=== PATIENT | male | born 1990 | race Caucasian/White ===

== ENCOUNTER → 2017-10-10 | Outpatient (CLI) | payer BC ==
--- NOTE | 2017-10-10 08:08 | DIAGNOSTIC IMAGING REPORT ---
CT SCAN OF THE PARANASAL SINUSES CLINICAL HISTORY: Hypertrophy of the nasal turbinates. COMPARISON STUDY: No priors. TECHNIQUE: High-resolution CT scan of the paranasal sinuses is performed. Images are reviewed in the axial, sagittal, and coronal planes. IV contrast was not administered for this examination. The examination is performed using the fusion protocol. A dose lowering technique was utilized adhering to the principles of ALARA. CT DOSE: 596.26 mGy.cm FINDINGS: Maxillary antra: Trace mucosal thickening is seen bilaterally, right greater than left. Anterior ethmoid sinuses: Trace mucosal thickening is seen on the right. Clear on the left. Posterior ethmoid sinuses: Clear. Sphenoid sinuses: Trace mucosal thickening is seen bilaterally. Frontal sinuses: Clear. Ostiomeatal complexes: Patent bilaterally. Frontoethmoidal and sphenoethmoidal recesses: Patent bilaterally. Carotid arteries: The carotid arteries are covered and without septal attachments. Ethmoid roofs: There is slightly asymmetric elevation of the left ethmoid roof as compared to the right. Nasal turbinates: The inferior nasal terminates appear hypertrophied. Nasal septum: There is mild rightward deviation of the bony nasal septum with leftward facing spur posteriorly. Optic nerves: Covered. Orbits: The bony orbits are intact. Orbital contents are normal in appearance. Calvarium: The imaged calvarium is normal in appearance Mastoid air cells: Well pneumatized. Brain parenchyma: Partially visualized brain parenchyma is within normal limits. IMPRESSION: Minimal paranasal sinus disease as above. Electronically signed by: Kb Saeed M.D. 10/10/2017 8:07 AM Dictated Date/Time: 10/10/2017 8:01 AM
== END | disposition home or self-care (01) ==
LOC: C.CTS 07:45
DX: J34.3 Hypertrophy of nasal turbinates (principal)

== ENCOUNTER 2023-01-11 19:55 | Observation (INO) ==
[2023-01-11 21:34] LABS: Alanine Aminotransferase 18 U/L (7-52); Albumin Globulin Ratio 2.3 (0.9-2); Albumin Level 4.8 gm/dl (3.4-5.0); Alkaline Phosphatase 31 U/L (34-104); Anion Gap 8 (3-11); Aspartate Aminotransferase 15 U/L (13-39); BUN Creatinine Ratio 13.4 (10-20); Bilirubin,Total 0.7 mg/dl (0.2-1.0); Blood Urea Nitrogen 15 mg/dl (6-23); Calcium 9.1 mg/dl (8.6-10.3); Carbon Dioxide 26 mmol/L (21-32); Chloride 105 mmol/L (98-107); Est GFR (African American) 100.2 ml/min; Est GFR (Non-African American) 86.5 ml/min; Globulin 2.1 gm/dl (2.5-4.0); Glucose 91 mg/dl (70-99(Fasting)); Magnesium 1.9 mg/dl (1.7-2.4); Potassium 3.9 mmol/L (3.5-5.1); Sodium 139 mmol/L (136-145); Total Protein 6.9 gm/dl (6.0-8.3)
[2023-01-11 21:40] LABS: Troponin I High Sensitivity < 2.3 pg/ml (0-20)
[2023-01-11 21:50] LABS: Partial Thromboplastin Time 27.8 Seconds (21.0-31.0); Prothrombin Time 10.8 Seconds (9.0-12.0)
[2023-01-11 21:54] LABS: Basophils # (auto) 0.03 K/uL (0-0.2); Basophils % (auto) 0.7 %; Eosinophils # (auto) 0.08 K/uL (0-0.50); Hematocrit (blood only) 38.5 % (42.0-52.0); Hemoglobin 14.5 g/dl (14.0-18.0); Immature Granulocytes # (auto) 0.01 K/uL (0.01-0.20); Immature Granulocytes % (auto) 0.2 %; Lymphocytes # (auto) 1.83 K/uL (1.2-3.4); Lymphocytes % (auto) 45.4 %; Mean Corpuscular Hemoglobin 30.8 pg (25.0-34.0); Mean Corpuscular Hgb Conc 37.7 g/dL (32.0-36.0); Mean Corpuscular Volume 81.7 fL (80.0-100.0); Mean Platelet Volume 8.8 fL (9.4-12.4); Monocytes # (auto) 0.42 K/uL (0.11-0.59); Monocytes % (auto) 10.4 %; Neutrophils # (auto) 1.66 K/uL (1.40-6.50); Neutrophils % (auto) 41.3 %; Platelet Count 213 K/uL (130-400); RDW Standard Deviation 35.3 fL (36.4-46.3); Red Blood Count 4.71 M/uL (4.70-6.10); White Blood Count 4.03 K/ul (4.8-10.8)
--- NOTE | 2023-01-11 21:54 | Emergency Department Note ---
History of Present Illness General Chief complaint: Leg Weakness, Bilateral Stated complaint: SENSATION OF NUMBNESS/TIGLING DARRYL LEGS Time Seen by Provider: 01/11/23 21:37 History of Present Illness 32-year-old male patient presents to the emergency department with his for evaluation of numbness and weird feelings in his bilateral legs that is now radiating to his abdomen. His symptoms started 2 months ago, but getting progressively worse. He denies any injury or trauma. Has had tingling sensations into his bilateral legs and feels like he's not getting good circulation into his legs. Started in his feet and now progressing up his legs into his abdomen. Feels like something is wrapped around his toes, legs, and abdomen. Also feels like he has a "wedgie" in his buttocks area. Does not have any pain, just the "weird" feeling in his legs. Still having erections, but states that sexual sensation doesn't feel the same. No loss of control of his bowel or bladder functions. He is still able to walk. Denies any weakness of the legs, mostly just the decreased sensation. He states that over the past couple days the symptoms have gotten worse and he is worried that the symptoms are now in his abdomen over the past 2 days. He has tried steroids without improvement as well as gabapentin for the past month. Has not improved with ibuprofen or Tylenol either. Symptoms have been constant and seem to be the same at all times. Nothing seems to make the symptoms worse. The patient state s that he was diagnosed with anterolisthesis of the spine around 12 years old, but has not had previous symptoms similar to his current symptoms. Upon review of the patient's past medical records, he was seen by his PCP and had an MRI of the lumbar spine on 12/01/2022 with chronic L5 pars defect and grade 1 anterolisthesis resulting in moderate bilateral neural foraminal narrowing at L5/S1. No significant central canal stenosis. His PCP started him on steroids and gabapentin without any improvement. He was then seen by pain management who did not feel the patient's symptoms were secondary to lumbar radiculopathy and did not feel he had Guillain-Pablo based on history and exam. They were concerned about a spinal cord lesion versus progressive polyneuropathy. Pain management ordered an MRI of the brain, cervical spine, and thoracic spine with and without contrast, EMG testing, and he was referred to neurology. However, he is unable to get the MRIs done until January. Home Medications Medication Instructions Recorded Confirmed Type cholecalciferol (vitamin D3) 50 50 mcg PO DAILY #30 caps 11/23/22 12/28/22 Rx mcg (2,000 unit) capsule gabapentin 100 mg capsule 100 mg PO DAILY #30 caps 12/04/22 12/28/22 Rx Allergies Allergy/AdvReac Type Severity Reaction Status Date / Time No Known Allergies Allergy Unverified 12/28/22 10:53 Past Med/Surg History Medical History Anterolisthesis of lumbar spine L5-S1 Surgical History H/O oral surgery No pertinent past surgical history S/P tympanoplasty Family History Grandfather (Paternal) Myocardial infarction Father Myocardial infarction Other No pertinent family history Denies family history of Ovarian cancer Prostate cancer Breast cancer Colorectal cancer Social History Smoking Status: Never smoker Hx Alcohol Use: Yes Hx Substance Use: No Preferred Language: Urdu Visual Impairment: No Limitations Hearing Ability: Normal marital status: Current Living Situation: Family current occupational status: employed Feels Safe at Home: Yes Childhood Exposure to Second-Hand Smoke: No Dental Care, Regularly: Yes Physical Activity Frequency: 3-4 Times per Week Seatbelt Use: always Sunscreen Use: Yes Review of Systems See HPI for pertinent positives & negatives. Physical Exam Vital Signs Vital Signs - 24 hr 01/11/23 19:59 01/11/23 20:28 01/11/23 20:30 Temperature 36.6 C Temperature Source Temporal Artery Scan Pulse Rate 75 73 67 Pulse Rate from SpO2 Sensor 71 67 Respiratory Rate 17 16 12 Respiratory Depth Normal Blood Pressure 148/88 H 141/81 H 113/77 Blood Pressure Mean 108 101 89 Pulse Oximetry 97 96 96 Oxygen Delivery Method Room Air Room Air Room Air Sepsis Recent Fever Within 48 Hours No Sepsis New/Unexplained Change in Mental Status No Sepsis Action Taken by Nursing No Action Required 01/11/23 21:01 01/11/23 21:30 01/11/23 22:01 Temperature Temperature Source Pulse Rate 65 61 72 Pulse Rate from SpO2 Sensor 66 62 67 Respiratory Rate 19 16 14 Respiratory Depth Blood Pressure 151/74 H 138/84 133/97 Blood Pressure Mean 99 102 109 Pulse Oximetry 96 97 97 Oxygen Delivery Method Room Air Room Air Room Air Sepsis Recent Fever Within 48 Hours Sepsis New/Unexplained Change in Mental Status Sepsis Action Taken by Nursing 01/11/23 22:30 01/11/23 23:00 01/11/23 23:31 Temperature Temperature Source Pulse Rate 65 63 103 H Pulse Rate from SpO2 Sensor 62 63 80 Respiratory Rate 16 18 16 Respiratory Depth Blood Pressure 130/85 134/86 142/59 H Blood Pressure Mean 100 102 86 Pulse Oximetry 97 96 98 Oxygen Delivery Method Room Air Room Air Room Air Sepsis Recent Fever Within 48 Hours Sepsis New/Unexplained Change in Mental Status Sepsis Action Taken by Nursing 01/12/23 00:00 01/12/23 00:30 01/12/23 01:00 Temperature Temperature Source Pulse Rate 63 78 61 Pulse Rate from SpO2 Sensor 64 76 60 Respiratory Rate 13 22 12 Respiratory Depth Blood Pressure 124/83 137/73 125/70 Blood Pressure Mean 96 94 88 Pulse Oximetry 97 98 97 Oxygen Delivery Method Room Air Room Air Room Air Sepsis Recent Fever Within 48 Hours Sepsis New/Unexplained Change in Mental Status Sepsis Action Taken by Nursing VITALS: Vitals are noted on the nurse's note and reviewed by myself. GENERAL: No acute distress, non-diaphoretic. SKIN: No obvious rashes or lesions noted. Capillary reflex less than 2 seconds. HEAD: No scalp tenderness. No step-offs felt. EYES: Pupils equal round and reactive to light and accommodation. Conjunctivae without injection, sclerae without icterus. Extraocular movements intact without pain. No nystagmus. FACE: No facial bone tenderness. Full range of motion of the jaw without tenderness. No facial droop. MOUTH: Mucous membranes moist. Uvula midline. Airway patent. Tongue does not deviate. NECK: Supple without nuchal rigidity. Cervical spine is nontender. Full range of motion of the neck without tenderness and normal strength. Normal strength and range of motion of the neck. HEART: Regular rate and rhythm without murmurs gallops or rubs. LUNGS: Clear to auscultation bilaterally without wheezes, rales or rhonchi. No retractions or accessory muscle use. No chest wall tenderness. ABDOMEN: Positive bowel sounds x 4. Normal tympanic percussion. Soft, nontender, without masses or organomegaly. No guarding or rebound tenderness. No focal right lower quadrant or left lower quadrant tenderness. No CVA tenderness. Negative Castanon sign. MUSCULOSKELETAL: No tenderness of the thoracic or lumbar spine or paraspinal muscles. Strength 5/5 and equal bilaterally in the upper and lower extremities. Full range of motion of the bilateral upper and lower extremities without pain. Deep tendon reflexes normal in all extremities. Dorsalis pedis and posterior tibial pulse 2+. NEURO: Patient was alert and oriented to person place and time. Normal mental status exam. The patient is able to distinguish light and sharp touch equally in the bilateral lower extremities, however, he states that the sensation feels different than normal. Normal heel and toe walking. Negative Romberg and pronator drift. Cerebellar function intact. No focal neurological deficits. Medical Decision Making Differential Diagnosis Differential diagnosis includes Guillain-Pablo, MS, ALS, lumbar radiculopathy, progressive polyneuropathy, brain lesion, spinal cord lesion, disc herniation, fracture, subluxation, metastatic disease, cord compression, discitis, sciatica, cauda equina, conus medullaris syndrome, infection, epidural abscess, epidural hematoma, as well as other pathologies. Laboratory Data Attestation: I reviewed the patient's lab results. 01/11/23 20:28 01/11/23 20:28 Lab Results 01/11/23 01/11/23 01/11/23 Range/Units 20:28 20:28 20:28 WBC 4.03 L (4.8-10.8) K/ul RBC 4.71 (4.70-6.10) M/uL Hgb 14.5 (14.0-18.0) g/dl Hct 38.5 L (42.0-52.0) % MCV 81.7 (80.0-100.0) fL MCH 30.8 (25.0-34.0) pg MCHC 37.7 H (32.0-36.0) g/dL RDW Std Deviation 35.3 L (36.4-46.3) fL RDW Coeff of David 12.0 (11.5-14.5) % Plt Count 213 (130-400) K/uL MPV 8.8 L (9.4-12.4) fL Immature Gran % (Auto) 0.2 % Neut % (Auto) 41.3 % Lymph % (Auto) 45.4 % [place] % (Auto) 10.4 % Eos % (Auto) 2.0 % Baso % (Auto) 0.7 % Neut # (Auto) 1.66 (1.40-6.50) K/uL Lymph # (Auto) 1.83 (1.2-3.4) K/uL [place] # (Auto) 0.42 (0.11-0.59) K/uL Eos # (Auto) 0.08 (0-0.50) K/uL Baso # (Auto) 0.03 (0-0.2) K/uL Immature Gran # (Auto) 0.01 (0.01-0.20) K/uL PT 10.8 (9.0-12.0) Seconds INR 1.0 (0.9-1.1) APTT 27.8 (21.0-31.0) Seconds PTT Ratio 1.0 Sodium 139 (136-145) mmol/L Potassium 3.9 (3.5-5.1) mmol/L Chloride 105 (98-107) mmol/L Carbon Dioxide 26 (21-32) mmol/L Anion Gap 8 (3-11) BUN 15 (6-23) mg/dl Creatinine 1.12 (0.6-1.4) mg/dl Est Cr Clr Drug Dosing 107.0 ml/min Est GFR ( Amer) 100.2 ml/min Est GFR (Non-Af Amer) 86.5 ml/min BUN/Creatinine Ratio 13.4 (10-20) Glucose 91 (70-99(Fasting)) mg/dl Calcium 9.1 (8.6-10.3) mg/dl Magnesium 1.9 (1.7-2.4) mg/dl Total Bilirubin 0.7 (0.2-1.0) mg/dl AST 15 (13-39) U/L ALT 18 (7-52) U/L Alkaline Phosphatase 31 L (34-104) U/L Troponin I High Sens < 2.3 (0-20) pg/ml Total Protein 6.9 (6.0-8.3) gm/dl Albumin 4.8 (3.4-5.0) gm/dl Globulin 2.1 L (2.5-4.0) gm/dl Albumin/Globulin Ratio 2.3 H (0.9-2) TSH (0.300-4.500) uIu/ml Urine Color Urine Appearance (Clear) Urine pH (4.5-7.5) Ur Specific [place] (1.000-1.030) Urine Protein (Negative) Urine Glucose (UA) (Negative) Urine Ketones (Negative) Urine Blood (Negative) Urine Nitrite (Negative) Urine Bilirubin (Negative) Urine Urobilinogen (Negative) Ur Leukocyte Esterase (Negative) SARS-CoV-2, RNA, NAAT (NEGATIVE) 01/11/23 01/11/23 01/11/23 Range/Units 20:28 22:47 22:47 WBC (4.8-10.8) K/ul RBC (4.70-6.10) M/uL Hgb (14.0-18.0) g/dl Hct (42.0-52.0) % MCV (80.0-100.0) fL MCH (25.0-34.0) pg MCHC (32.0-36.0) g/dL RDW Std Deviation (36.4-46.3) fL RDW Coeff of David (11.5-14.5) % Plt Count (130-400) K/uL MPV (9.4-12.4) fL Immature Gran % (Auto) % Neut % (Auto) % Lymph % (Auto) % [place] % (Auto) % Eos % (Auto) % Baso % (Auto) % Neut # (Auto) (1.40-6.50) K/uL Lymph # (Auto) (1.2-3.4) K/uL [place] # (Auto) (0.11-0.59) K/uL Eos # (Auto) (0-0.50) K/uL Baso # (Auto) (0-0.2) K/uL Immature Gran # (Auto) (0.01-0.20) K/uL PT (9.0-12.0) Seconds INR (0.9-1.1) APTT (21.0-31.0) Seconds PTT Ratio Sodium (136-145) mmol/L Potassium (3.5-5.1) mmol/L Chloride (98-107) mmol/L Carbon Dioxide (21-32) mmol/L Anion Gap (3-11) BUN (6-23) mg/dl Creatinine (0.6-1.4) mg/dl Est Cr Clr Drug Dosing ml/min Est GFR ( Amer) ml/min Est GFR (Non-Af Amer) ml/min BUN/Creatinine Ratio (10-20) Glucose (70-99(Fasting)) mg/dl Calcium (8.6-10.3) mg/dl Magnesium (1.7-2.4) mg/dl Total Bilirubin (0.2-1.0) mg/dl AST (13-39) U/L ALT (7-52) U/L Alkaline Phosphatase (34-104) U/L Troponin I High Sens (0-20) pg/ml Total Protein (6.0-8.3) gm/dl Albumin (3.4-5.0) gm/dl Globulin (2.5-4.0) gm/dl Albumin/Globulin Ratio (0.9-2) TSH 3.243 (0.300-4.500) uIu/ml Urine Color Yellow Urine Appearance Clear (Clear) Urine pH 7.0 (4.5-7.5) Ur Specific [place] 1.026 (1.000-1.030) Urine Protein Negative (Negative) Urine Glucose (UA) Negative (Negative) Urine Ketones Negative (Negative) Urine Blood Negative (Negative) Urine Nitrite Negative (Negative) Urine Bilirubin Negative (Negative) Urine Urobilinogen Negative (Negative) Ur Leukocyte Esterase Negative (Negative) SARS-CoV-2, RNA, NAAT NEGATIVE (NEGATIVE) MDM Narrative I examined the patient. I reviewed the patient's past medical records including his PCP and pain management visit along with imaging as summarized above. The patient's paresthesias that started in his bilateral feet have gotten progressively worse and are now to the umbilicus. He has normal range of motion and strength on exam. He denies any pain. Only the paresthesias. Unfortunately, he is unable to get outpatient MRIs until January. Due to abnormally long wait times in the emergency department, an IV lock was placed and labs were ordered in triage. White blood cell count 4.03, hemoglobin 14.5, platelet count 213. Coags are normal. CMP essentially unremarkable. Magnesium normal. High-sensitivity troponin normal. TSH normal. Urinalysis normal. COVID-negative. The patient's vitamin B12 level was normal at 410 on 12/19/2022. I had a meaningful discussion about this patient with Dr. Good who agrees with my assessment and the treatment plan. Due to his progressive symptoms, I spoke with the inpatient hospitalist who will admit the patient for further management including inpatient MRIs and neurology consult. Please refer to their dictation for further details. The patient was admitted in stable condition. Impression & Plan Paresthesia of both lower extremities Discharge Plan Visit Data Chief Complaint: Leg Weakness, Bilateral Stated Complaint: SENSATION OF NUMBNESS/TIGLING DARRYL LEGS ED Provider: Pete Good ED Midlevel Provider: Yandy Spann Discharge Problem: Paresthesia of both lower extremities Patient Disposition: Admitted As Inpatient Condition: Good Forms Stand Alone Forms: My [facility] [email or web address] Prescriptions Prescriptions: No Action gabapentin 100 mg capsule 100 mg PO DAILY Qty: 30 2RF cholecalciferol (vitamin D3) 50 mcg (2,000 unit) capsule 50 mcg PO DAILY Qty: 30 0RF Referrals Referrals: ProParamjit MD [Primary Care Provider] -
[2023-01-11 23:05] LABS: Appearance Urine Clear (Clear); Bilirubin Urine Negative (Negative); Blood Urine Negative (Negative); Color Urine Yellow; Glucose Urine UA Negative (Negative); Ketones Urine Negative (Negative); Leukocyte Esterase Urine Negative (Negative); Nitrite Urine Negative (Negative); Protein Urine Negative (Negative); Specific Gravity Urine 1.026 (1.000-1.030); Urobilinogen Urine Negative (Negative)
--- NOTE | 2023-01-11 23:27 | History & Physical Report ---
Date of Service January 11, 2023 Assessment & Plan (1) Paresthesia of both lower extremities: Plan: 32 year old male coming in for worsening ascending paresthesia. Paresthesia of both lower extremities: -MRI of lumbar spine with chronic L5 pars defecct grade 1 anterolisthesis w/ moderate neural foraminal narrowing. -Pain management did not think this to be related to patient's symptoms, ordered MRI brain, cervical, thoracic spine to differentiate -MRI's would not be till January, patient with acute worsening of paresthesias up to umbilicus. -No sensational deficits, weakness in affected areas. -Will obtain MRI's and consult neurology for recommendations. -Ordered B12, folate, A1c. Family history of CAD: -Ordered repeat lipid profile, last from 2020. Vitamin D deficiency: -Can hold oral vitamin D while inpatient. F/E/N/GI: Regular diet Code status: full DVT: none, patient ambulatory. Dispo: Med/surg obs. (2) Family history of premature CAD: (3) Vitamin D deficiency: History of Present Illness Chief Complaint: Retrograde tingling. Primary Care Provider: Paramjit Bishop MD Mitesh is a 32 year old male with no discernable past medical history coming in to the ED for worsening paresthesia from lower extremity to the abdomen. Patient states that over the past 2 months he's had worsening almost tight paresthesia feeling that started at the bilateral feet and worked it's way up to his waist over a month's time. He initially was seen by his PCP for the issue who ordered an MRI of the lumbar spine, given prednisone, and started on gabapentin to help manage the symptoms. He was directed to pain management who did not think it was related to lumbar radiculopathy nor Guillain Lenora due to lack of weakness. The paresthesias are present at all times. Pain management had ordered MRI of the brain, cervical spine, and thoracic spine and referred to neurology along with EMG testing. His paresthesias then worsened over the past 2 days progressing up to the umbilicus. He denies any fevers, chills, chest pain, shortness of breath, weakness or focal weakness, difficulties with bowel movements. He states he has not had issue with controlling urination but the urinating and sexual activity feel muted (decreased sensation). He has not had this happen before and did not have any aggravating factors at play such as trauma. He states he has had some lower back discomfort with lifting before but that has been present since age 12. He has a family history of heart disease with his grandpa and father with heart attacks in their 40's. 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 He eats a regular balanced diet including meat. Blood work and U/A in the ED unremarkable. Allergies Allergy/AdvReac Type Severity Reaction Status Date / Time No Known Allergies Allergy Unverified 12/28/22 10:53 Home Medications Medication Instructions Recorded Confirmed Type cholecalciferol (vitamin D3) 50 50 mcg PO DAILY #30 caps 11/23/22 12/28/22 Rx mcg (2,000 unit) capsule gabapentin 100 mg capsule 100 mg PO DAILY #30 caps 12/04/22 12/28/22 Rx Past Med/Surg History Medical History Anterolisthesis of lumbar spine L5-S1 Surgical History H/O oral surgery No pertinent past surgical history S/P tympanoplasty Family History Grandfather (Paternal) Myocardial infarction Father Myocardial infarction Other No pertinent family history Denies family history of Ovarian cancer Prostate cancer Breast cancer Colorectal cancer Social History Smoking Status: Never smoker Second Hand Exposure: No; Do You Dip or Chew Tobacco: No; Hx Alcohol Use: Yes Alcohol type: beer Hx Substance Use: No Preferred Language: Citizen Of [place] Communication Ability: Effective Visual Impairment: No Limitations Hearing Ability: Normal Light Adjuster Required: No Beliefs That Will Affect Care: None marital status: Current Living Situation: Family current occupational status: employed Other Information That Helps Us Care for You: No Feels Safe at Home: Yes Safety Concerns: Feels Safe At This Time Childhood Exposure to Second-Hand Smoke: No Dental Care, Regularly: Yes Physical Activity Frequency: 3-4 Times per Week Seatbelt Use: always Sunscreen Use: Yes Assistive Devices: None Review of Systems Review of Systems: As per HPI. Physical Exam Constitutional: WD/WN, vitals as above Eyes: PERRL, conjunctivae normal, anicteric sclerae Respiratory: normal respiratory effort, lungs clear to auscultation Cardiovascular: RRR, no murmur, no edema Gastrointestinal (Abdomen): normal bowel sounds, soft, nontender, no hepatosplenomegaly Musculoskeletal: no cyanosis or clubbing, extremities motor strength 5/5 Skin: no rashes, warm and dry Neurologic: patellar DTR's 2+ bilat, sensation intact and PERRL, EOMI, accommodation nl, no face palsy, no dysarthria Psychiatric: A+Ox3, euthymic affect Results & Data Results & Data Vital Signs (Past 12 Hours) Vital Signs Temp Pulse Resp BP Pulse Ox O2 Del Method 01/11/23 23:00 63 18 134/86 96 Room Air 01/11/23 22:30 65 16 130/85 97 Room Air 01/11/23 22:01 72 14 133/97 97 Room Air 01/11/23 21:30 61 16 138/84 97 Room Air 01/11/23 21:01 65 19 151/74 H 96 Room Air 01/11/23 20:30 67 12 113/77 96 Room Air 01/11/23 20:28 73 16 141/81 H 96 Room Air 01/11/23 19:59 36.6 C 75 17 148/88 H 97 Room Air Supervising Physician Co-Signing Physician Notes Patient seen and examined, Chart reviewed, case discussed with Dr. Alarcon And I agree with the assessment and plan as documented above. In brief, patient is a 32-year-old male with no significant past medical or surgical history with exception of anterolisthesis L5 on S1 presenting with paresthesias of bilateral LE progressive for several months. Has had an MRI of the L-spine which was unremarkable No chemical or toxin exposure, recent illness or vaccines. No trauma. On exam he has normal strength and reflexes. Sensation intact. No neurologic deficits Remainder of exam unremarkable Labs and images reviewed Assessment/Plan - progressive bilateral LE paresthesias in patient with no significant past medical or surgical history. Ddx to include spinal cord lesion vs toxic/metabolic causes of polyneuropathy -Check MRI brain C/T spine -Check B12/Folate/A1C -Neurology consultation appreciated - additional workup - EMG, LP, metals, autoimmune, etc per their direction -Remainder of plan as above Resident Activity Tracking Resident Involvement: Resident Care Provided Care Provided: Adult Hospital Medicine
[2023-01-12] MEDS ORDERED: ACETAMINOPHEN 325 MG TAB PO PRN (01:37)
[2023-01-12 06:49] LABS: Chol HDL Ratio 3.6 (0-5)
--- NOTE | 2023-01-12 06:50 | Billing Data ---
Date of Service January 11, 2023 Coding Level of Care Code 04858 INT INP/OBS CARE
[2023-01-12 07:43] LABS: Estimated Average Glucose 88 mg/dl; Hemoglobin A1C 4.7 % (4.5-5.6)
--- NOTE | 2023-01-12 08:12 | Hospitalist Progress Note ---
Date of Service January 12, 2023 Assessment & Plan (1) Paresthesia of both lower extremities: (2) Family history of premature CAD: (3) Vitamin D deficiency: Plan Paresthesia of both lower extremities: MRI Brain, C & T-spine findings consistent with the diagnosis of Multiple Sclerosis Patient seen via telehealth by Dr. Ronan Cordero. Advised patient may be discharged after one dose of 1g solumedrol without taper Patient to have close followup in [place] for this new diagnosis MRI of lumbar spine with chronic L5 pars defect grade 1 anterolisthesis w/ moderate neural foraminal narrowing. Pain management did not think this to be related to patient's symptoms, ordered MRI brain, cervical, thoracic spine to differentiate MRI's would not be till January, patient with acute worsening of paresthesias up to umbilicus. Will obtain MRI's and consult neurology for recommendations. B12, folate, A1c all normal. Family history of CAD: Lipid profile WNL Vitamin D deficiency: -Can hold oral vitamin D while inpatient. F/E/N/GI: Regular diet Code status: full DVT: none, patient ambulatory Admission and Anticipated Discharge Date Admission Date: January 11, 2023 Supervising Physician Co-Signing Physician Notes I personally examined the patient and verified all rocha points of history and exam, discussed case, and agree with decision making and plan documented by Dr. Mao. New diagnosis of multiple sclerosis on imaging today. On exam, patient feeling well and receiving 1 g of IV Solu-Medrol during conversation. Discussed next steps with patient and his . Patient will follow-up at [facility]. Subjective 32 yo male with no PMHx admitted for worsening paresthesia from lower extremity to the abdomen. Over the past 2 months he's had worsening almost tight paresthesia feeling that started at the bilateral feet and worked it's way up to his waist over a month's time. He initially was seen by his PCP for the issue who ordered an MRI of the lumbar spine, given prednisone, and started on gabapentin to help manage the symptoms. He was directed to pain management who did not think it was related to lumbar radiculopathy nor Guillain [place] due to lack of weakness. The paresthesias are present at all times. Pain management had ordered MRI of the brain, cervical spine, and thoracic spine and referred to neurology along with EMG testing. His paresthesias then worsened over the past 2 days progressing up to the umbilicus. He denies any fevers, chills, chest pain, shortness of breath, weakness or focal weakness, difficulties with bowel movements. He states he has not had issue with controlling urination but urinating and sexual activity feel muted (decreased sensation). He has not had this happen before and did not have any aggravating factors at play such as trauma. He states he has had some lower back discomfort with lifting before but that has been present since age 12. He has a family history of heart disease with his grandpa and father with heart attacks in their 40's. 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 He eats a regular balanced diet including meat. This AM: feeling well. Continues to have paraesthesias to the level of the umbilicus. No decrease in LE strength. No bowel/bladder difficulties. This has been present for ~2 months, worsening with time. Has progressed superiorly and in intensity over the last 3-4 days. Review of Systems Review of Systems: Reviewed, see HPI Physical Exam Physical Exam: General: patient resting comfortably, NAD, non-toxic in appearance, AA&O x 4, answers questions appropriately and follows commands. Skin: warm, dry, intact, no rashes or lesions HEENT: NC/AT, PERRL, EOMI, anicteric sclera, conjunctiva without injection, external ear normal to inspection and nontender, nares patent, moist mucus membranes, dentition intact, no oropharyngeal lesions, neck supple, trachea midline, no LAD, no thyromegaly, no JVD Heart: +S1/S2, regular, no m/r/g Lungs: equal air entry bilaterally, no rales/rhonchi/wheezes Abd: +BS, soft, NT/ND, no masses/organomegaly/ascites Ext: warm, 2+ pulses in UE/LE bilaterally, no clubbing/cyanosis or edema Neuro: nonfocal, patient AA&O x 4, speech intact, no facial droop, moving all extremities on command with equal strength 5/5. Decreased sensation in the LE, but can localize to touch. Results & Data Results & Data Vital Signs (Past 12 Hours) Vital Signs Temp Pulse Pulse Resp BP BP Pulse Ox 01/12/23 07:33 36.7 C 66 18 123/76 97 01/12/23 02:21 01/12/23 01:42 36.6 C 63 12 148/93 H 98 01/12/23 01:00 61 12 125/70 97 01/12/23 00:30 78 22 137/73 98 01/12/23 00:00 63 13 124/83 97 01/11/23 23:31 103 H 16 142/59 H 98 01/11/23 23:00 63 18 134/86 96 01/11/23 22:30 65 16 130/85 97 01/11/23 22:01 72 14 133/97 97 01/11/23 21:30 61 16 138/84 97 01/11/23 21:01 65 19 151/74 H 96 01/11/23 20:30 67 12 113/77 96 01/11/23 20:28 73 16 141/81 H 96 O2 Del Method 01/12/23 07:33 Room Air 01/12/23 02:21 Room Air 01/12/23 01:42 Room Air 01/12/23 01:00 Room Air 01/12/23 00:30 Room Air 01/12/23 00:00 Room Air 01/11/23 23:31 Room Air 01/11/23 23:00 Room Air 01/11/23 22:30 Room Air 01/11/23 22:01 Room Air 01/11/23 21:30 Room Air 01/11/23 21:01 Room Air 01/11/23 20:30 Room Air 01/11/23 20:28 Room Air Laboratory Results Abnormal lab results 01/11/23 01/11/23 Range/Units 20:28 20:28 WBC 4.03 L (4.8-10.8) K/ul Hct 38.5 L (42.0-52.0) % MCHC 37.7 H (32.0-36.0) g/dL RDW Std Deviation 35.3 L (36.4-46.3) fL MPV 8.8 L (9.4-12.4) fL Alkaline Phosphatase 31 L (34-104) U/L Globulin 2.1 L (2.5-4.0) gm/dl Albumin/Globulin Ratio 2.3 H (0.9-2) Diagnostic Findings MRI Brain: FINDINGS: No areas restricted diffusion to suggest acute infarction. The midline structures are intact. The paranasal sinuses and mastoid air cells are clear. The orbits are unremarkable. The ventricles and sulci are within normal limits. There is no hematoma or midline shift. The major vascular flow-voids at the skull base are well-maintained. Multiple scattered foci of T2 hyperintensity predominantly within the periarticular white matter of the supratentorial brain. These are also seen within the subcortical white matter, left internal capsule, cerebellar hemisphere, and left hemipons. The majority these are perpendicular to the ventricles and therefore favor a demyelinating disease as multiple sclerosis. The left pontine lesion measures approximately 7 mm. No definite masses identified. IMPRESSION: 1. Multiple scattered foci of T2 hyperintensity within the white matter of the supratentorial brain as well as the cerebellum and irene. This most likely represents a demyelinating disease such as multiple sclerosis. 3 month follow-up recommended to ensure stability of the 7 mm pontine lesion. 2. No acute infarct or intracranial hemorrhage. MRI C-Spine: FINDINGS: No fracture or subluxation within the cervical spine. Prevertebral soft tissues and the C1-C2 interval are intact. There is a normal marrow signal intensity seen throughout the visualized osseous structures. Mild disc space narrowing at C5-C6. The posterior fossa is better appreciated on the same day brain MRI. No disc herniations. No significant central canal or neural foraminal narrowing. Straightening of the cervical spine. There are multiple scattered small foci of T2 hyperintensity seen within the cervical spinal cord. Dominant T2 hyperintense focus is at the C2-C3 level and measures 9 mm. These findings ar e highly suspicious for a demyelinating disease such as multiple sclerosis. IMPRESSION: There are multiple scattered foci of T2 hyperintensity seen within the cervical spinal cord. Dominant T2 hyperintense focus is at the C2-C3 level and measures 9 mm. These findings are highly suspicious for a demyelinating disease such as multiple sclerosis. MRI T-Spine: FINDINGS: No fracture or subluxation within the thoracic spine. Disc spaces are preserved. There are few scattered small Schmorl's nodes within the lower thoracic spine. Paravertebral soft tissues are unremarkable. There is normal marrow signal intensity seen throughout the visualized osseous structures. No disc herniations. No significant central canal or neural foraminal narrowing. There are few scattered T2 hyperintense foci within the thoracic spinal cord likely representing nonspecific demyelination. This favors a demyelinating disease such as multiple sclerosis. Dominant focus at the T8-T9 disc space level measures 11 x 5 mm. IMPRESSION: There are few scattered T2 hyperintense foci within the thoracic spinal cord likely representing nonspecific demyelination. This favors a demyelinating disease such as multiple sclerosis. Resident Activity Tracking Resident Involvement: Resident Care Provided Care Provided: Adult [facility]
[2023-01-12] MEDS ORDERED: GABAPENTIN 100 MG CAP PO SCH (09:00)
--- NOTE | 2023-01-12 10:11 | Magnetic Resonance Report ---
Brain MRI WITHOUT CONTRAST HISTORY: progressive retrograde paresthesia TECHNIQUE: Multiplanar multisequence MRI of the brain was performed without the use of contrast. COMPARISON STUDY: None. FINDINGS: No areas restricted diffusion to suggest acute infarction. The midline structures are intac t. The paranasal sinuses and mastoid air cells are clear. The orbits are unremarkable. The ventricles and sulci are within normal limits. There is no hematoma or midline shift. The major vascular flow-v oids at the skull base are well-maintained. Multiple scattered foci of T2 hyperintensity predominantl y within the periarticular white matter of the supratentorial brain. These are also seen within the s ubcortical white matter, left internal capsule, cerebellar hemisphere, and left hemipons. The majorit y these are perpendicular to the ventricles and therefore favor a demyelinating disease as multiple s clerosis. The left pontine lesion measures approximately 7 mm. No definite masses identified. IMPRESSION: 1. Multiple scattered foci of T2 hyperintensity within the white matter of the supratentorial brain a s well as the cerebellum and irene. This most likely represents a demyelinating disease such as multip le sclerosis. 3 month follow-up recommended to ensure stability of the 7 mm pontine lesion. 2. No acute infarct or intracranial hemorrhage. ACT 112: Negative or not required by law. Electronically signed by: Chele Schumacher M.D. 01/12/2023 10:09 AM
--- NOTE | 2023-01-12 10:31 | Magnetic Resonance Report ---
CERVICAL SPINE MRI HISTORY: progressive retrograde paresthesia TECHNIQUE: Multiplanar multisequence MRI of the cervical spine was performed without the use of contr ast. COMPARISON STUDY: None. FINDINGS: No fracture or subluxation within the cervical spine. Prevertebral soft tissues and the C1- C2 interval are intact. There is a normal marrow signal intensity seen throughout the visualized osse ous structures. Mild disc space narrowing at C5-C6. The posterior fossa is better appreciated on the same day brain MRI. No disc herniations. No significant central canal or neural foraminal narrowing. Straightening of the cervical spine. There are multiple scattered small foci of T2 hyperintensity see n within the cervical spinal cord. Dominant T2 hyperintense focus is at the C2-C3 level and measures 9 mm. These findings are highly suspicious for a demyelinating disease such as multiple sclerosis. IMPRESSION: There are multiple scattered foci of T2 hyperintensity seen within the cervical spinal cord. Dominant T2 hyperintense focus is at the C2-C3 level and measures 9 mm. These findings are highly suspicious for a demyelinating disease such as multiple sclerosis. ACT 112: Negative or not required by law. Electronically signed by: Chele Schumacher M.D. 01/12/2023 10:30 AM
--- NOTE | 2023-01-12 11:05 | Magnetic Resonance Report ---
THORACIC SPINE MRI HISTORY: progressive retrograde paresthesia TECHNIQUE: Multiplanar multisequence MRI of the thoracic spine was performed without the use of contr ast. COMPARISON: Cervical spine MRI 01/12/2023. Thoracic spine radiograph 06/29/2022. Lumbar spine MRI 12/01. FINDINGS: No fracture or subluxation within the thoracic spine. Disc spaces are preserved. There are few scatte red small Schmorl's nodes within the lower thoracic spine. Paravertebral soft tissues are unremarkabl e. There is normal marrow signal intensity seen throughout the visualized osseous structures. No disc herniations. No significant central canal or neural foraminal narrowing. There are few scattered T2 hyperintense foci within the thoracic spinal cord likely representing nonspecific demyelination. This favors a demyelinating disease such as multiple sclerosis. Dominant focus at the T8-T9 disc space le lisa measures 11 x 5 mm. IMPRESSION: There are few scattered T2 hyperintense foci within the thoracic spinal cord likely representing nons pecific demyelination. This favors a demyelinating disease such as multiple sclerosis. ACT 112: Negative or not required by law. Electronically signed by: Chele Schumacher M.D. 01/12/2023 11:02 AM
[2023-01-12] MEDS ORDERED: methylPREDNISolone 1,000 MG in DEXTROSE 5% 250 ML IV STA (11:38)
--- NOTE | 2023-01-12 11:39 | Neurology Consultation ---
Date of Consultation January 12, 2023 Assessment & Plan (1) Multiple sclerosis: Based on the imaging results, this is a new diagnosis of multiple sclerosis. He is not currently disabled by his symptoms and was offered 3 days of steroids, though I explained this does not affect the course of the disease. Would give 1g of IV Solumedrol prior to discharge, no taper. Will help arrange expedited outpatient follow-up with neurology. Otherwise no further neurologic workup. -- Solumedrol 1g IV x1 -- Will help arrange expedited outpatient MS follow-up -- Can be discharged from a neurologic perspective Telehealth Consultation Telehealth Information Telehealth Information: I performed this visit using a real-time telehealth connection between my location and the patients location ([facility]). After connecting through interactive tele-video, patient was identified by name and date of and/or wristband check.Patient (or authorized healthcare sales representative health insurance) was informed that this was a telemedicine visit and it was being conducted confidentially over secure lines. My office door was closed and no one else was present in the room with me.Patient (or authorized healthcare sales representative health insurance) provided consent to proceed with the visit, expressed an understanding of privacy and security of the telemedicine visit, and gave permission to have a hospital sales representative health insurance in the room in order to assist with the visit and to conduct portions of the visit, as needed. I informed the patient (or authorized healthcare sales representative health insurance) that I reviewed their record and presented the opportunity for them to ask any questions regarding the visit today. The patient agreed to participate. History of Present Illness Reason for Consultation: Leg parasthesias Requesting Physician: Dr. Ruggiero Attending Physician: Jazmín Ruggiero DO History of Present Illness Mitesh Sawyer is a 32 yo M presenting with bilateral leg parasthesias/dull sensation that has been progressive over the past few months. He had a similar episode in May that resolved. He was seeing pain management who told him to come to the [facility] ED if his symptoms worsened. Over the last week the numbness progressed to the mid abdomen. Otherwise denies any weakness, vision changes, headache, neck pain, speech/swallowing difficulties or bowel/bladder dysfunction. No family hx of MS. Allergies Allergy/AdvReac Type Severity Reaction Status Date / Time No Known Allergies Allergy Unverified 12/28/22 10:53 Home Medications Medication Instructions Recorded Confirmed Type cholecalciferol (vitamin D3) 50 50 mcg PO DAILY #30 caps 11/23/22 12/28/22 Rx mcg (2,000 unit) capsule gabapentin 100 mg capsule 100 mg PO DAILY #30 caps 12/04/22 12/28/22 Rx Patient History Medical History Anterolisthesis of lumbar spine L5-S1 Surgical History H/O oral surgery No pertinent past surgical history S/P tympanoplasty Family History Grandfather (Paternal) Myocardial infarction Father Myocardial infarction Other No pertinent family history Denies family history of Ovarian cancer Prostate cancer Breast cancer Colorectal cancer Social History Smoking Status: Never smoker Second Hand Exposure: No; Do You Dip or Chew Tobacco: No; Hx Alcohol Use: Yes Alcohol type: beer Hx Substance Use: No Preferred Language: Citizen [place] Communication Ability: Effective Visual Impairment: No Limitations Hearing Ability: Normal Distribution Superintendent Required: No Beliefs That Will Affect Care: None marital status: Current Living Situation: Family current occupational status: employed Other Information That Helps Us Care for You: No Feels Safe at Home: Yes Safety Concerns: Feels Safe At This Time Childhood Exposure to Second-Hand Smoke: No Dental Care, Regularly: Yes Physical Activity Frequency: 3-4 Times per Week Seatbelt Use: always Sunscreen Use: Yes Assistive Devices: None Review of Systems +B/L Leg parasthesias. Physical Exam Neurological Examination: Mental Status: Awake and alert. Oriented to person, place, and time. Fluent. Comprehension intact. Affect appropriate. Cranial Nerves: II: pupils 3/3 to 2/2 III/IV/: Spont. versions intact without nystagmus VII: Facial expression symmetric VIII: Hearing intact to voice Motor: Strength was symmetric and antigravity throughout. There were no abnormal movements. Coordination: No dysmetria Results & Data Vital Signs (Past 12 Hours) Vital Signs Temp Pulse Pulse Resp BP BP Pulse Ox 01/12/23 07:33 36.7 C 66 18 123/76 97 01/12/23 02:21 01/12/23 01:42 36.6 C 63 12 148/93 H 98 01/12/23 01:00 61 12 125/70 97 01/12/23 00:30 78 22 137/73 98 01/12/23 00:00 63 13 124/83 97 O2 Del Method 01/12/23 07:33 Room Air 01/12/23 02:21 Room Air 01/12/23 01:42 Room Air 01/12/23 01:00 Room Air 01/12/23 00:30 Room Air 01/12/23 00:00 Room Air Laboratory Results Abnormal lab results 01/11/23 01/11/23 Range/Units 20:28 20:28 WBC 4.03 L (4.8-10.8) K/ul Hct 38.5 L (42.0-52.0) % MCHC 37.7 H (32.0-36.0) g/dL RDW Std Deviation 35.3 L (36.4-46.3) fL MPV 8.8 L (9.4-12.4) fL Alkaline Phosphatase 31 L (34-104) U/L Globulin 2.1 L (2.5-4.0) gm/dl Albumin/Globulin Ratio 2.3 H (0.9-2) Diagnostic Findings MRI Brain, C/T spine - numerous T2 lesions in multiple locations, periventricular, brainstem, spinal cord.
--- NOTE | 2023-01-12 11:59 | Discharge Summary ---
Date of Service January 12, 2023 Admission HPI Per Admitting Provider Mitesh is a 32 year old male with no discernable past medical history coming in to the ED for worsening paresthesia from lower extremity to the abdomen. Patient states that over the past 2 months he's had worsening almost tight paresthesia feeling that started at the bilateral feet and worked it's way up to his waist over a month's time. He initially was seen by his PCP for the issue who ordered an MRI of the lumbar spine, given prednisone, and started on gabapentin to help manage the symptoms. He was directed to pain management who did not think it was related to lumbar radiculopathy nor Guillain [place] due to lack of weakness. The paresthesias are present at all times. Pain management had ordered MRI of the brain, cervical spine, and thoracic spine and referred to neurology along with EMG testing. His paresthesias then worsened over the past 2 days progressing up to the umbilicus. He denies any fevers, chills, chest pain, shortness of breath, weakness or focal weakness, difficulties with bowel movements. He states he has not had issue with controlling urination but the urinating and sexual activity feel muted (decreased sensation). He has not had this happen before and did not have any aggravating factors at play such as trauma. He states he has had some lower back discomfort with lifting before but that has been present since age 12. He has a family history of heart disease with his grandpa and father with heart attacks in their 40's. 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 He eats a regular balanced diet including meat. Blood work and U/A in the ED unremarkable. Admission Exam (Per Admitting) Constitutional Constitutional: WD/WN, vitals as above Eyes: PERRL, conjunctivae normal, anicteric sclerae Respiratory: normal respiratory effort, lungs clear to auscultation Cardiovascular: RRR, no murmur, no edema Gastrointestinal (Abdomen): normal bowel sounds, soft, nontender, no hepatosplenomegaly Musculoskeletal: no cyanosis or clubbing, extremities motor strength 5/5 Skin: no rashes, warm and dry Neurologic: patellar DTR's 2+ bilat, sensation intact and PERRL, EOMI, accommodation nl, no face palsy, no dysarthria Psychiatric: A+Ox3, euthymic affect Discharge Data Consultations 01/11/23 23:03 ED Decision to Admit Stat 01/12/23 01:37 Consult Neurology Routine Procedures Performed Diagnostic Findings MRI Brain: FINDINGS: No areas restricted diffusion to suggest acute infarction. The midline structures are intact. The paranasal sinuses and mastoid air cells are clear. The orbits are unremarkable. The ventricles and sulci are within normal limits. There is no hematoma or midline shift. The major vascular flow-voids at the skull base are well-maintained. Multiple scattered foci of T2 hyperintensity predominantly within the periarticular white matter of the supratentorial brain. These are also seen within the subcortical white matter, left internal capsule, cerebellar hemisphere, and left hemipons. The majority these are perpendicular to the ventricles and therefore favor a demyelinating disease as multiple sclerosis. The left pontine lesion measures approximately 7 mm. No definite masses identified. IMPRESSION: 1. Multiple scattered foci of T2 hyperintensity within the white matter of the supratentorial brain as well as the cerebellum and irene. This most likely represents a demyelinating disease such as multiple sclerosis. 3 month follow-up recommended to ensure stability of the 7 mm pontine lesion. 2. No acute infarct or intracranial hemorrhage. MRI C-Spine: FINDINGS: No fracture or subluxation within the cervical spine. Prevertebral soft tissues and the C1-C2 interval are intact. There is a normal marrow signal intensity seen throughout the visualized osseous structures. Mild disc space narrowing at C5-C6. The posterior fossa is better appreciated on the same day brain MRI. No disc herniations. No significant central canal or neural foraminal narrowing. Straightening of the cervical spine. There are multiple scattered small foci of T2 hyperintensity seen within the cervical spinal cord. Dominant T2 hyperintense focus is at the C2-C3 level and measures 9 mm. These findings are highly suspicious for a demyelinating disease such as multiple sclerosis. IMPRESSION: There are multiple scattered foci of T2 hyperintensity seen within the cervical spinal cord. Dominant T2 hyperintense focus is at the C2-C3 level and measures 9 mm. These findings are highly suspicious for a demyelinating disease such as multiple sclerosis. MRI T-Spine: FINDINGS: No fracture or subluxation within the thoracic spine. Disc spaces are preserved. There are few scattered small Schmorl's nodes within the lower thoracic spine. Paravertebral soft tissues are unremarkable. There is normal marrow signal inten sity seen throughout the visualized osseous structures. No disc herniations. No significant central canal or neural foraminal narrowing. There are few scattered T2 hyperintense foci within the thoracic spinal cord likely representing nonspecific demyelination. This favors a demyelinating disease such as multiple sclerosis. Dominant focus at the T8-T9 disc space level measures 11 x 5 mm. IMPRESSION: There are few scattered T2 hyperintense foci within the thoracic spinal cord likely representing nonspecific demyelination. This favors a demyelinating disease such as multiple sclerosis. Hospital Course (1) Paresthesia of both lower extremities: (2) Family history of premature CAD: (3) Vitamin D deficiency: Plan 32 yo male admitted with worsening paraesthesias advancing superiorly from the lower extremities now at the level of the umbilicus. This was being worked up in the outpatient setting and patient was scheduled for MRI in january. His symptoms have worsened over the last few days and he presented to the emergency room. He received MRI brain, c-spine, and t-spine. After films were read by radiology and he was seen via tele-health by neurology the new diagnosis of multiple sclerosis was made. Pt was offered 3 day course of solumedrol 1g IV but declined and wants to go home today. Neurology endorses his decision and will allow him to leave with one dose of 1g solumedrol and close follow up at [facility] in the outpatient setting. Neurology will be the one to arrange outpatient followup. Paresthesia of both lower extremities: MRI Brain, C & T-spine findings consistent with the diagnosis of Multiple Sclerosis Patient seen via telehealth by Dr. Ronan Cordero. Advised patient may be discharged after one dose of 1g solumedrol without taper Patient to have close followup in [place] for this new diagnosis MRI of lumbar spine with chronic L5 pars defect grade 1 anterolisthesis w/ moderate neural foraminal narrowing. Pain management did not think this to be related to patient's symptoms, ordered MRI brain, cervical, thoracic spine to differentiate MRI's would not be till January, patient with acute worsening of paresthesias up to umbilicus. Will obtain MRI's and consult neurology for recommendations. B12, folate, A1c all normal. Family history of CAD: Lipid profile WNL Vitamin D deficiency: -Can hold oral vitamin D while inpatient. F/E/N/GI: Regular diet Code status: full DVT: none, patient ambulatory Supervising Physician Co-Signing Physician Notes I personally examined the patient and verified all rocha points of history and exam, discussed case, and agree with decision making and plan documented by Dr. Mao. New diagnosis of multiple sclerosis on imaging today. Patient will follow-up at [facility]. Resident Activity Tracking Resident Involvement: Resident Care Provided Care Provided: Adult [facility]
--- NOTE | 2023-01-12 14:12 | Electrocardiogram Report ---
Test Reason : Blood Pressure : / mmHG Vent. Rate : 066 BPM Atrial Rate : 066 BPM P-R Int : 106 ms QRS Dur : 164 ms QT Int : 450 ms P-R-T Axes : 014 -59 090 degrees QTc Int : 471 ms Normal sinus rhythm Ventricular pre-excitation, WPW pattern type A Abnormal ECG No previous ECGs available Confirmed by Paramjit Thomas ([id number]) on 01/12/2023 2:12:20 PM Referred By: REFERRED SELF Confirmed By:Paramjit Thomas
== END 2023-01-12 14:58 | disposition home or self-care (01) ==
LOC: 3E 19:55 → ED 19:55 → SUATTDRO 23:46 → 3E 01-12 01:25